=== PATIENT | male | born 1990 | race Caucasian/White ===

== ENCOUNTER 2022-02-16 08:16 | Emergency (ER) | payer OTHER ==
[~2022-02-16] VITALS: Ht 177.8 cm; Wt 81.6 kg
--- NOTE | 2022-02-16 08:19 | NUR ---
[id number] FROM NURSING HOME OK TO BOOK C/O TAKING FENTANYL. PATIENT AROUSABLE TO PAIN. TOLERATING ROOM AIR. CONNECTED PT TO MONITOR. SAFETY MEASURES IN PLACE.
--- NOTE | 2022-02-16 08:27 | NUR ---
PHLEB AT BEDSIDE.
[2022-02-16 08:42] LABS: BASOPHILS % (AUTO) 0.2 % (0.0-2.0); HEMATOCRIT 53 % (39-51); HEMOGLOBIN 17.5 g/dL (13.5-17.5); LYMPHOCYTES # (AUTO) 0.8 K/uL (0.8-4.8); LYMPHOCYTES % (AUTO) 4.3 % (20.0-44.0); MEAN CORPUSCULAR HGB CONC 33 g/dl (31.0-36.0); MEAN CORPUSCULAR VOLUME 84 fL (80-96); MONOCYTES # (AUTO) 1.1 K/uL (0.1-1.30); MONOCYTES % (AUTO) 6.2 % (2.0-12.0); NEUTROPHILS # (AUTO) 16.3 K/uL (1.8-8.9); NEUTROPHILS % (AUTO) 89.3 % (43.0-81.0); PLATELET COUNT (AUTO) 617 K/uL (150-450); RED BLOOD CELL COUNT(AUTO) 6.34 MIL/uL (4.5-6.0); WHITE BLOOD COUNT (AUTO) 18.2 K/uL (4.3-11.0)
[2022-02-16 08:48] LABS: CALCIUM, SERUM 10.1 mg/dL (8.5-10.1); CREATININE 1.3 mg/dL (0.6-1.3); POTASSIUM 4.3 mmol/L (3.5-5.1)
--- NOTE | 2022-02-16 09:01 | NUR ---
[id number] stable condition. Written and verbal after care instructions given. Patient verbalizes understanding of instruction.
[2022-02-16 09:02] VITALS: BP 142/90
== END 2022-02-16 09:08 ==
LOC: ER 08:18
DX: F11.23 Opioid dependence with withdrawal (principal); Z88.8 Allergy status to other drugs, medicaments and biological substances; Z60.2 Problems related to living alone
CPT/HCPCS: 36415; 80048-TC; 85025-TC